=== PATIENT | female | born 1940 | race Caucasian/White ===

== ENCOUNTER → 2016-11-28 | Outpatient (CLI) | payer MEDICARE, BC ==
[~2016-11-28] MED LIST: ASPI-558 PO; CETI10TA56 PO; CHOL3000 PO; DIPH25CA84 PO; ESCI10TA47 PO; FLUT16SP2 EA NOSTRIL; KRIL500C PO; LEVO100T83 PO; MULT-806 PO; OMEP40CA11 PO; ROPI0.5T4 PO; TRAZ-170 PO; UBID100C10 PO
== END ==
LOC: WC.BC 13:00
DX: Z12.31 Encounter for screening mammogram for malignant neoplasm of breast (principal)
CPT/HCPCS: 77063; G0202